=== PATIENT | female | born 1975 | race African-American/Black ===

== ENCOUNTER 2019-01-30 14:44 | Outpatient (CLI) | payer OTHER ==
--- NOTE | 2019-01-30 15:44 | RAD ---
LUMBAR SPINE 3 VIEWS: Date: 01/30/19 INDICATION: Severe left hip pain that radiates from her back since Sunday. COMPARISON: None. FINDINGS: There are five lumbar-type vertebrae. There is mild multilevel disc degenerative disease. Spinal alig nment is preserved. Facet joints appear within normal limits. There are cholecystectomy clips within the right upper quadrant. SI joints are normal appearing. IMPRESSION: Mild disc degenerative disease of the lumbar spine. POS: OFF
== END 2019-01-30 14:45 | disposition home or self-care (01) ==
LOC: SCSRAD 14:44
PROVIDERS: ATTEND Nurse Practitioner Family
DX: M25.551 Pain in right hip (principal); M51.36 Other intervertebral disc degeneration, lumbar region
CPT/HCPCS: 72100

== ENCOUNTER 2019-04-15 14:34 | Outpatient (CLI) | payer OTHER ==
--- NOTE | 2019-04-15 15:30 | MMO ---
Bilateral MAMMO Bilat Diag [facility]. CLINICAL HISTORY: Patient is 43 years old and is seen for diagnostic exam. The patient has the following family history of breast cancer: maternal grandmother. The patient has no personal history of cancer. VIEWS: The views performed were: bilateral craniocaudal with tomosynthesis; bilateral mediolateral oblique with tomosynthesis; and bilateral mediolateral. FILMS COMPARED: The present examination has been compared to prior imaging studies performed at [facility] on 05/22/2014, 11/24/2016 and 12/12/2017, and at [facility] on 04/15/2019. MAMMOGRAM FINDINGS: The breasts are heterogeneously dense, which could obscure a lesion on mammography. Right breast: There are no suspicious masses, calcifications or areas of architectural distortion. Left breast: Patient is uncertain where the palpable area is so a marker is not placed. There is a 2.1 cm round mass in the upper outer quadrant. US shows corresponding cyst. There are no suspicious masses, suspicious calcifications, or new areas of architectural distortion. IMPRESSION: THERE IS NO MAMMOGRAPHIC EVIDENCE OF MALIGNANCY. A ROUTINE FOLLOW-UP MAMMOGRAM IN 1 YEAR IS RECOMMENDED. THE RESULTS OF THIS EXAM WERE SENT TO THE PATIENT. ACR BI-RADS Category 2 - Benign finding MAMMOGRAPHY NOTE: 1. A negative mammogram report should not delay a biopsy if a dominant of clinically suspicious mass is present. 2. Approximately 10% to 15% of breast cancers are not detected by mammography. 3. Adenosis and dense breasts may obscure an underlying neoplasm.
--- NOTE | 2019-04-15 15:38 | ULT ---
LEFT BREAST ULTRASOUND: HISTORY: Left breast mass felt by the patient's doctor. COMPARISON: None. TECHNIQUE: Targeted sonographic imaging is performed in the left breast at the 2 o'clock position. Static image s are reviewed. FINDINGS: There is an anechoic oval well-circumscribed lesion at the 2 o'clock position measuring 1.2 x 3.0 x 2 .7 cm. This simple cyst is felt to correspond with mammographic finding. Incidental intramammary lymph node noted at the 2 o'clock position with a preserved fatty hilum measu ring 1.4 cm. IMPRESSION: BIRADS category 2 - benign finding. RECOMMENDATION: Annual mammogram. POS: OFF
== END 2019-04-15 14:35 | disposition home or self-care (01) ==
LOC: BICMAMMO 14:34
PROVIDERS: ATTEND Family Medicine
DX: N63.20 Unspecified lump in the left breast, unspecified quadrant (principal); Z80.3 Family history of malignant neoplasm of breast
CPT/HCPCS: 77066; G0279